=== PATIENT | male | born 1975 | race Caucasian/White ===

== ENCOUNTER 2021-02-12 07:07 | Emergency (ER) | payer SELFPAY ==
[2021-02-12] MEDS ORDERED: Lidocaine 1% PF 2 ML SDV INJECT ONE (07:42)
--- NOTE | 2021-02-12 07:45 | EDM.PDOC ---
ED HPI GENERAL MEDICAL PROBLEM - General Chief Complaint: ENT Problem Stated Complaint: ABSCESSED TOOTH Time Seen by Provider: 02/12/21 07:43 Source of Information: Reports: Patient History Limitations: Reports: No Limitations - History of Present Illness INITIAL COMMENTS - FREE TEXT/NARRATIVE: Patient is a 45-year-old male presents today for tooth pain. Patient says he has pain to the left lower tooth believes he may have abscess because he had one before the past. Patient denies any facial swelling difficult breathing or swallowing fevers chills nausea vomiting. Patient is new to the area has not been able to set up a dental follow-up. dental Pain Score (Numeric/FACES): 7 - Related Data Allergies Allergy/AdvReac Type Severity Reaction Status Date / Time Penicillins Allergy Anaphylactic Verified 02/12/21 07:23 Shock Home Meds: Home Meds Chlorhexidine Gluconate [Chlorhexidine Gluconate 0.12% Rinse] 10 ml MM BID 5 Days #100 ml 02/12/21 [Rx] Clindamycin HCl 300 mg PO TID 7 Days #21 capsule 02/12/21 [Rx] Past Medical History - Infectious Disease History Infectious Disease History: Reports: None Social & Family History - Tobacco Use Packs/Tins Daily: 1 - Recreational Drug Use Recreational Drug Use: No ED ROS ENT - Review of Systems Review Of Systems: See Below Constitutional: Reports: No Symptoms HEENT: Reports: Dental Pain Respiratory: Reports: No Symptoms Endocrine: Reports: No Symptoms GI/Abdominal: Reports: No Symptoms : Reports: No Symptoms Musculoskeletal: Reports: No Symptoms Skin: Reports: No Symptoms Neurological: Reports: No Symptoms Psychiatric: Reports: No Symptoms Hematologic/Lymphatic: Reports: No Symptoms Immunologic: Reports: No Symptoms ED EXAM, ENT - Physical Exam Exam: See Below Exam Limited By: No Limitations General Appearance: Alert, WD/WN, No Apparent Distress Eye Exam: Bilateral Eye: EOMI, PERRL Mouth/Throat: Dental Pain, Dental Tenderness, Dental Trauma. No: Throat Swelling, Tongue Swelling, Tonsillar Exudates Respiratory/Chest: No Respiratory Distress Cardiovascular: Normal Peripheral Pulses GI/Abdominal: Normal Bowel Sounds, Soft, Non-Tender Neurological: Alert, Oriented Course - Vital Signs Last Recorded V/S: Last Vital Signs Temp 97.3 F 02/12/21 07:15 Pulse 73 02/12/21 07:15 Resp BP 118/85 02/12/21 07:15 Pulse Ox 98 02/12/21 07:15 - Orders/Labs/Meds Meds: Medications Discontinued Medications Generic Name Dose Route Start Last Admin Trade Name Kike PRN Reason Stop Dose Admin Lidocaine HCl 2 ml 02/12/21 07:42 Lidocaine 1% Pf 2 Ml Sdv INJECT 02/12/21 07:43 ONETIME ONE Departure - Departure Time of Disposition: 07:59 Disposition: Home, Self-Care 01 Condition: Good Clinical Impression: Pain, dental - Discharge Information *PRESCRIPTION DRUG MONITORING PROGRAM REVIEWED*: Not Applicable *COPY OF PRESCRIPTION DRUG MONITORING REPORT IN PATIENT WANDA: Not Applicable Instructions: Dental Abscess Referrals: PCP,None [Primary Care Provider] - Forms: ED Department Discharge Additional Instructions: The following information is given to patients seen in the emergency department who are being discharged to home. This information is to outline your options for follow-up care. We provide all patients seen in our emergency department with a follow-up referral. The need for follow-up, as well as the timing and circumstances, are variable depending upon the specifics of your emergency department visit. If you don't have a primary care physician on staff, we will provide you with a referral. We always advise you to contact your personal physician following an emergency department visit to inform them of the circumstance of the visit and for follow-up with them and/or the need for any referrals to a consulting specialist. The emergency department will also refer you to a specialist when appropriate. This referral assures that you have the opportunity for follow-up care with a specialist. All of these measure are taken in an effort to provide you with optimal care, which includes your follow-up. Under all circumstances we always encourage you to contact your private physician who remains a resource for coordinating your care. When calling for follow-up care, please make the office aware that this follow-up is from your recent emergency room visit. If for any reason you are refused follow-up, please contact the [facility] Emergency Department at and asked to speak to the emergency department charge nurse. Please follow up with your primary care physician. If you do not have a primary care physician, see below: [facility] [address] [place] [address] [facility] [address] [place] [id number] You were seen today for tooth pain. There is not any notable swelling to the area. We have control the pain with providing local numbing medication that she did not want today. We will send you home with antibiotics and a antibiotic mouthwash that should help out with the pain. If you develop any increased swelling difficulty swallowing or breathing please return to the ED. Sepsis Event Note (ED) - Evaluation Sepsis Screening Result: No Definite Risk - Focused Exam Vital Signs: Vital Signs Temp Pulse BP Pulse Ox 02/12/21 07:15 97.3 F 73 118/85 98 - Assessment/Plan Plan: Patient is a 45-year-old male who presents today for dental pain. Patient has some tenderness should be left lower gum area. There is no noticeable swelling on exam. Patient does have poor dentition. Will numb the area for pain control and refer patient to dentist.
== END 2021-02-12 08:10 | disposition home or self-care (01) ==
LOC: MW.ED 07:07
DX: K08.89 Other specified disorders of teeth and supporting structures (principal); Z72.0 Tobacco use; Z88.0 Allergy status to penicillin
CPT/HCPCS: 99282